=== PATIENT | male | born 1975 | race Caucasian/White ===

== ENCOUNTER 2017-04-02 11:53 | Emergency (ER) | payer MEDICAID ==
[2017-04-02 12:42] LABS: APPEARANCE CLEAR (CLEAR); COLOR YELLOW (YELLOW); SPECIFIC GRAVITY 1.015 (1.005-1.020)
[2017-04-02 12:43] LABS: BILIRUBIN NEGATIVE (NEGATIVE); GLUCOSE NEGATIVE (NEGATIVE); KETONE NEGATIVE (NEGATIVE); NITRITE NEGATIVE (NEGATIVE); PROTEIN NEGATIVE (NEGATIVE); UROBILINOGEN NORMAL (NORMAL)
== END 2017-04-02 15:29 | disposition home or self-care (01) ==
LOC: D.ER 11:53
PROVIDERS: Emergency Medicine
DX: S39.012A Strain of muscle, fascia and tendon of lower back, initial encounter (principal); W13.2XXA Fall from, out of or through roof, initial encounter; Y93.89 Activity, other specified; Y92.028 Other place in mobile home as the place of occurrence of the external cause; M51.36 Other intervertebral disc degeneration, lumbar region; M54.5 Low back pain; M62.838 Other muscle spasm

== ENCOUNTER 2017-05-28 13:04 | Emergency (ER) | payer MEDICAID | END 2017-05-28 15:02 | disposition home or self-care (01) | LOC: D.ER 13:04 | DX: K02.9 Dental caries, unspecified (principal); K08.89 Other specified disorders of teeth and supporting structures; J06.9 Acute upper respiratory infection, unspecified; J20.9 Acute bronchitis, unspecified; M54.5 Low back pain ==